=== PATIENT | male | born 1950 | race Caucasian/White ===

== ENCOUNTER 2017-11-24 09:45 | Outpatient (RCR) | payer MEDICARE ==
[2017-01-18 09:53] VITALS: BMI 30.1
--- NOTE | 2017-09-16 15:43 | PT INITIAL EVALUATION ---
MEDICAL DIAGNOSIS: Left leg weakness, balance, and left foot pain TREATMENT DIAGNOSIS: same and altered gait DATE OF ONSET: 09/15/14 SUBJECTIVE: Christiano Mcnulty presents to physical therapy with complaints of left leg weakness, difficulty with walking and balance, and left foot pain. He also reports that the sustained a brain injury approximately 3 years ago from a fall. He states that his body feels better with movement and feels worse with sitting and not moving. He denies any recent falls. He states that he fractured his "pinky toe" on his left foot and states that it is continuing to heal. He states that he had an XRAY and an MRI on the toe. Furthermore, he states that the toe also became infected, but states that it is doing better. He reports that he has been placed on antibiotics for the infection. He denies any pain in his L LE and states that it feels more like tightness/swelling to directly superior to the knee. REHAB PROBLEM LIST: Increased Pain Decreased Strength Decreased Endurance Decreased Balance Decreased Function Decreased ADL's Decreased Mobility Decreased Gait PREVIOUS MEDICAL HISTORY: See EMR OCCUPATION: Retired OBJECTIVE: 5th digit evidence of healed wound but no current open wound. Posture: He demonstrated minimal B rounded shoulders, increased thoracic kyphosis, and decreased lumbar lordosis. ROM: B hip, knee, ankle AROM motions: WNL's with normal end feels Strength: L hip flexion, abduction, extension, L ankle DF: 4/5 with no pain. L knee flexion and extension: 5/5 with no pain. L ankle PF: 5/5. L toe DF: 4/5 and L toe PF: 5/5. R hip abduction, adduction, extension, R knee extension and flexion, and R ankle DF and PF: 5/5 with no pain. Palpation: TTP over the 5th metatarsal and 5th phalanges on his L foot Sensation: B L2-S1 dermatomes equal bilaterally with no loss in sensation Special Tests: The lower extremity functional scale: 52/80: 33% impairment Mobility: Independent Gait: With no AD, he demonstrated the following gait mechanics: decreased B step lengths, decreased pelvic mobility, no LOB, decreased B foot clearance, increased base of support, increased double limb support, decreased swing phases of gait. Balance: Firm surface, normal base of support, eyes opened: 30 seconds, firm surface , decreased base of support, eyes opened (minimal sway): 30 seconds. Firm surface, decreased base of support, eyes closed (moderate sway): 30 seconds. Compliant surface, normal base of support, eyes opened (moderate sway) : 30 seconds. Compliant surface, decreased base of support, eyes opened ( Moderate sway): 30 seconds. Complaint surface, decreased base of support, eyes closed (severe sway): 10 seconds. R Tandem stance, firm surface, eyes opened ( severe sway): 5 seconds. L tandem stance, firm surface, eyes opened (severe say ): 15 seconds. ASSESSMENT: Christiano will benefit from skilled physical therapy addressing the listed impairments to return to prior level of function to improve QOL. Short Term Goals 6 weeks: Pt will demonstrate an improvement in core and B LE strength from baseline to 4+/5 or greater to improve function and QOL. 6 weeks: Pt will demonstrate an improvement in gait mechanics from baseline to a return to normal gait mechanics to improve function and QOL. 6 weeks: Pt will feel 0/10 tightness on L lower leg to improve function and QOL. Patient's Goals improve walking and improve steadiness PLAN: Patient to be seen for Manual Therapy/STM/MET Strengthening/condition Range of Motion Spinal Stabilization Work Hardening/Cond Stretching Neuromuscular Re-ed Closed Chain Program Gait Trg/Balance Trg Home Exercise Program Therapeutic Activities 2x/Week for 6 Weeks If you have any questions, comments, or concerns about this report or plan, please contact me at . Thank you, Troy Klein, PT, DPT MTDD
--- NOTE | 2017-10-18 16:32 | PT PLAN OF CARE ---
Physician: Trev Vela DO Patient is being seen: 2x/week Therapist: Troy Klein, PT, DPT Medical Diagnosis: Left leg weakness, balance, and left foot pain Treatment Diagnosis: same and altered gait Date of Onset: 09/15/14 Date of Initial Evaluation: 09/15/17 Date patient was last seen: 10/18/17 Number of treatments: 10 Number of cancellations/No shows: 0 INTERVENTIONS: Manual Therapy/STM/MET Strengthening/condition Range of Motion Spinal Stabilization Work Hardening/Cond Stretching Neuromuscular Re-ed Closed Chain Program Gait Trg/Balance Trg Home Exercise Program Therapeutic Activities GOALS: 6 weeks: Pt will demonstrate an improvement in core and B LE strength from baseline to 4+/5 or greater to improve function and QOL. MET 6 weeks: Pt will demonstrate an improvement in gait mechanics from baseline to a return to normal gait mechanics to improve function and QOL. NM 6 weeks: Pt will feel 0/10 tightness on L lower leg to improve function and QOL. NM PATIENT'S GOAL: improve walking and improve steadiness Status of Patient's Goals: Progressing Patient Compliance: GOOD Prognosis: Good Reasons for continuing therapy: This is a progress note for Christiano Mcnulty. He reports that he is doing well. He denies any pain. He demonstrated improvements with B LE strength. He has met 1/3 of his goals. We have strongly encouraged patient to use his SPC until his balance improves. Patient reports he is trying not to use his cane, but he is not safe without it and is at risk for a fall. We will change our focus from strengthening to gait mechanics and balance to improve function and return to prior level of function. Posture: He demonstrated minimal B rounded shoulders, increased thoracic kyphosis, and decreased lumbar lordosis. ROM: B hip, knee, ankle AROM motions: WNL's with normal end feels Strength: L hip flexion, abduction, extension, L ankle DF: 5/5 with no pain. L knee flexion and extension: 5/5 with no pain. L ankle PF: 5/5. L toe DF: 5/5 and L toe PF: 5/5. R hip abduction, adduction, extension, R knee extension and flexion, and R ankle DF and PF: 5/5 with no pain. Palpation: TTP over the 5th metatarsal and 5th phalanges on his L foot Special Tests: The lower extremity functional scale: 36/80: 45% impairment Mobility: Independent If you have any questions, please contact me at [phone]. Thank you, Troy Klein, PT, DPT [facility]
[~2017-11-24 09:45] MED LIST: ACET-1966 PO; AMOX-362 PO; HYDR-2966 PO; LISI20TA29 PO; NAPR-744 PO; NAPR220C12 PO; NAPR500T75 PO; TRAZ-156 PO; TRI40I TOP
--- NOTE | 2017-11-25 11:56 | PT PLAN OF CARE ---
Physician: Trev Vela DO Patient is being seen: 2x/week Therapist: Troy Klein, PT, DPT Medical Diagnosis: Left leg weakness, balance, and left foot pain Treatment Diagnosis: same and altered gait Date of Onset: 09/15/14 Date of Initial Evaluation: 09/15/17 Date patient was last seen: 11/24/17 Number of treatments: 18 Number of cancellations/No shows: 1 INTERVENTIONS: Manual Therapy/STM/MET Strengthening/condition Range of Motion Spinal Stabilization Work Hardening/Cond Stretching Neuromuscular Re-ed Closed Chain Program Gait Trg/Balance Trg Home Exercise Program Therapeutic Activities GOALS: 6 weeks: Pt will demonstrate an improvement in core and B LE strength from baseline to 4+/5 or greater to improve function and QOL. MET 6 weeks: Pt will demonstrate an improvement in gait mechanics from baseline to a return to normal gait mechanics to improve function and QOL. Progressed will meet 6 weeks: Pt will feel 0/10 tightness on L lower leg to improve function and QOL. NM PATIENT'S GOAL: improve walking and improve steadiness Status of Patient's Goals: Progressed well Patient Compliance: GOOD Prognosis: Good Reasons for continuing therapy: This is a discharge note for Christiano Mcnulty. He reports that he is doing well. He denies any pain. He demonstrated improvements with B LE strength. He has met 2/3 of his goals. He reports that he continues to feel the tightness on his L leg and states that it has made zero improvements within physical therapy. Furthermore, he also reports that he continues to struggle to walk and balance and states that he has made zero improvements over the last 8-10 weeks. However, he states that he has had zero falls over the last month or two. He states that he performs his exercises at home on a daily or every other day basis without any problems. He demonstrated improvements within the PT that included the following: reduction of impairment as determined by the lower extremity functional scale, increased balance strategies as determined by time (able to increase from 10 to seconds to 40-60 seconds on compliant surface, eyes closed, and decreased base of support), increased core and B LE strength, and improved gait mechanics. He is independent within his HEP. He reports that he would like to continue on his own at home. As a result, he will be discharged from PT. Posture: He demonstrated minimal B rounded shoulders, increased thoracic kyphosis, and decreased lumbar lordosis. ROM: B hip, knee, ankle AROM motions: WNL's with normal end feels Strength: L hip flexion, abduction, extension, L ankle DF: 5/5 with no pain. L knee flexion and extension: 5/5 with no pain. L ankle PF: 5/5. L toe DF: 5/5 and L toe PF: 5/5. R hip abduction, adduction, extension, R knee extension and flexion, and R ankle DF and PF: 5/5 with no pain. Palpation: TTP over the 5th metatarsal and 5th phalanges on his L foot Special Tests: The lower extremity functional scale: 48/80: 39% impairment Mobility: Independent If you have any questions, please contact me at [phone]. Thank you, Troy Klein, PT, DPT [facility]
== END 2017-11-24 18:00 | disposition home or self-care (01) ==
LOC: PT 09:45
PROVIDERS: ATTEND Family Medicine
DX: M79.672 Pain in left foot (principal); L03.032 Cellulitis of left toe; M62.81 Muscle weakness (generalized); R26.89 Other abnormalities of gait and mobility
CPT/HCPCS: 97162

== ENCOUNTER 2017-12-06 09:45 | Outpatient (RCR) | payer MEDICARE ==
[2017-01-18 09:53] VITALS: BMI 30.1
--- NOTE | 2017-12-06 14:50 | OT INITIAL EVALUATION ---
SUBJECTIVE: Patient is a 67 year old right hand dominate male with a history of TBI who was referred to OP OT services for evaluation and treatment for ADLs to ensure that patient is able to care for himself. Patient lives in [place], alone , in a bi-level house. Patient reports that all of his needs in his home are located on one level and that he does not need to access stairs. Patient reports that he is independent with dressing and was able to doff and tolu his jacket during the session without assistance. Patient reports that he is independent with grooming and hygiene-he has a walk-in shower and a tub/shower combo. Patient stands to shower. Patient does very little driving and uses public transportation. Patient reports that he is able to do his shopping, laundry, and housework chores without any help. Patient does not have any family in town to help him. Previous Medical History: please refer to chart Current Limitations: none Occupation: retired OBJECTIVE: ROM: AROM Right Left Shoulder Flexion WNL WNL Shoulder Extension WNL WNL Shoulder Abduction WNL WNL Elbow Flexion/Extension WNL WNL Wrist Flexion/Extension WNL WNL Strength: MMT: Right Left Shoulder Flexion 5/5 5/5 Shoulder Extension 5/5 5/5 Shoulder Abduction 5/5 5/5 Elbow Flexion/Extension 5/5 5/5 Wrist Flexion/Extension 5/5 5/5 (5= normal, 4= good, 3= fair, 2= poor, 1= trace) Eligibility Analyst Right = 82.3# (Age/gender normative= 91.1#) Left= 85.7# (Age/gender normative= 76.8#) Lateral Pinch Right = 24.3# (Age/gender normative= 23.4#) Left= 16.7# (Age/gender normative= 22#) 3 Point Pinch Right = 17# (Age/gender normative=21.4#) Left= 8# (Age/gender normative= 21.2#) Sensation: N/A Vision: no reports of changes in vision Special Tests: 9 Hole Peg Test (dexterity) Right= 29 seconds (Age/gender normative= 20.7 seconds) Left= 33 seconds (Age/gender normative= 22.9 seconds) Ash Index Activities of Daily Living: Patient scored 20/20 Mini-Mental State Examination: Patient scored 28/30-he wasn't able to recall 2 objects ASSESSMENT Patient demo with good UB strength, 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 Patient does present with some decreased coordination and 3 point pinch strength of the left hand, but this is not affecting his ability to independently perform his ADLs. Patient reports that he is managing his self cares at home and does not have any concerns regarding ADLs, UB strengthening or coordination. Patient presented to the clinic with appropriate clothing attire for the weather and did not appear that he has been unable to care for himself at home-presented with good grooming and hygiene. Patient at this time does not need skilled OT intervention. No recommendations regarding OT services at this time. PLAN: Plan to discharge patient with no recommendations from OT. Thank you for this referral. If you have any questions, concerns, or comments about this report or plan, please contact me at [phone]. Valery Mahmood MS, OTR/L Occupational Therapist [facility]
== END 2018-03-06 ==
LOC: OT 09:45
PROVIDERS: ATTEND Family Medicine
DX: Z87.820 Personal history of traumatic brain injury (principal)
CPT/HCPCS: 97165

== ENCOUNTER → 2018-05-08 | Outpatient (CLI) | payer MEDICARE ==
[2017-01-18 09:53] VITALS: BMI 30.1
--- NOTE | 2018-05-08 10:58 | RADIOLOGY IMAGING REPORT ---
FACILITY: [facility] PATIENT NAME: Christiano Mcnulty : 1950 MR: [id number] V: [id number] EXAM DATE: ORDERING PHYSICIAN: MOR CRUM TECHNOLOGIST: Location: [facility] Patient: Christiano Mcnulty : 1950 Visit/Account:[id number] Date of Sevice: 05/08/2018 BRAIN W/O CONTRAST Comparisons: None. Additional pertinent history: Abnormal gait TECHNIQUE: Multiplanar, multisequence brain MRI was performed without gadolinium contrast. FINDINGS: Sagittal midline structures and craniocervical junction: Negative. Midline shift: None. Ventricles: Negative. Brain parenchyma: Diffusion weighted imaging: Negative. Gradient sequence: Negative. T2 weighted FLAIR images: Negative. Extra-axial spaces: Mild cerebral atrophy. Dural venous sinuses and major arterial flow voids: Negative. Mastoid air cells and paranasal sinuses: Negative. Surrounding soft tissues and orbits: Negative. Impression: 1. Mild age-related changes as described above. 2. No evidence of acute intracranial pathology. Report Dictated By: Kenneth Caba MD at 05/08/2018 10:47 AM Report E-Signed By: Kenneth Caba MD at 05/08/2018 10:53 AM WSN:[id number]
== END ==
LOC: MRI 00:49
PROVIDERS: ATTEND Psychiatry & Neurology Neurology
DX: G25.5 Other chorea (principal); R26.9 Unspecified abnormalities of gait and mobility; S09.90XA Unspecified injury of head, initial encounter; F02.81 Dementia in other diseases classified elsewhere, unspecified severity, with behavioral disturbance
CPT/HCPCS: 36415; 70551; 85651

== ENCOUNTER → 2018-10-27 | Outpatient (CLI) | payer MEDICARE ==
[2017-01-18 09:53] VITALS: BMI 30.1
[~2018-10-27] MED LIST changes: -TRAZ-156 PO; +TRAZ50TA34 PO
== END ==
LOC: LAB 10:34
PROVIDERS: ATTEND Psychiatry & Neurology Neurology
DX: G25.5 Other chorea (principal); F02.81 Dementia in other diseases classified elsewhere, unspecified severity, with behavioral disturbance
CPT/HCPCS: 36415; 81401; 82525; 82607; 82746; 85610; 85613; 85651; 85730; 86146; 86147